=== PATIENT | male | born 1965 | race Caucasian/White ===

== ENCOUNTER 2022-03-15 21:42 | Emergency (ER) | payer OTHER ==
[2022-03-15 22:10] VITALS: BP 184/114; PULSE 83
[2022-03-15] MEDS ORDERED: cloNIDine 0.1 MG Tab PO ONE (22:27)
[2022-03-15] MEDS ORDERED: Acetaminophen/HYDROcodone 325-5 MG Tab PO ONE (22:27)
== END 2022-03-15 22:49 | disposition home or self-care (01) ==
LOC: JP.ED 21:42
DX: K04.7 Periapical abscess without sinus (principal); K02.9 Dental caries, unspecified; E78.00 Pure hypercholesterolemia, unspecified; I10 Essential (primary) hypertension; E66.9 Obesity, unspecified; Z68.41 Body mass index [BMI] 40.0-44.9, adult; Z88.0 Allergy status to penicillin; Z79.82 Long term (current) use of aspirin; Z79.899 Other long term (current) drug therapy
CPT/HCPCS: 99282; A9270